=== PATIENT | female | born 1960 | race Caucasian/White ===

== ENCOUNTER → 2016-04-17 | Outpatient (CLI) | payer OTHER ==
[~2016-04-17] MED LIST: ALBUTEROL INH; ALBUTEROL17 G1 IN; ALBUTEROL17 GM INH; ALBUTEROL20 ml INH; CELEXA PO; CIPRO PO; CITALOPRAM HBR10 MG PO; CYCLOBENZAPRINE5 MG PO; CYMBALTA PO; DARVOCET-N 1001 TAB PO; FLAGYL PO; GABAPENTIN300 MG PO; HUMALOG SUBQ; LANTUS100 U/ML SUBQ; LIPITOR20 MG PO; LOPID600 MG PO; LORTAB 7.5-5001 TAB PO; METFORMIN PO; NEURONTIN PO; NEURONTIN300 MG PO; OMEPRAZOLE40 M1 PO; OXYGEN IN; PHENERGAN PO; PRINIVIL20 M1 PO; RANITIDINE HCL150 M1 PO; SYMBICORT; SYMBICORT 160/4.6 GM INH; SYMBICORT INH; ZANTAC150 M1 PO; [UNRECOGNIZED DRUG - OTHER] SUBQ
--- NOTE | ~2016-04-17 | CT55 ---
[facility] A Service [facility] RADIOLOGY TEXT RESULTS PATIENT: NELI BUSTOS LOCATION: [facility] : 56 UNIT #: [id number] AGE: [address]: Luis Bravo MD SEX: F ORDER DR: [id number] [facility] [address] [place], [place] [address] [id number] O MR#: [id number] Acc #: [id number] NAME: NELI BUSTOS. : 1960 SEX: F STUDY DATE/TIME: 04/17/2016 15:20 UNIT: [facility] ROOM: STUDY DESCRIPTION: CT Chest W Con Attending Physician: Luis Bravo M.D. Referring Physician: Luis Bravo M.D. Ordering Physician: Luis Bravo M.D. Primary Care Physician: Merlene Snow MEDICAL IMAGING REPORT This report is preliminary unless electronic signature is present EXAM CT of the chest with contrast INDICATIONS 55-year-old female with right neck mass 6 months progressive dating larger and painful to touch. She has a cough. TECHNIQUE CT of the chest was performed following the administration of IV contrast. Coronal and sagittal reformatted images obtained. Compared with 02/26/[address] exam was performed with one or more of the following radiation dose reduction techniques: automatic exposure control, adjustment of mA and/or kV according to patient size, and iterative reconstruction. FINDINGS There is no lymphadenopathy. There is no pleural effusion. Calcified granuloma in the right lower lobe. There is no airspace consolidation or suspicious pulmonary nodule. Limited imaging of the upper abdomen demonstrates a lap-band. Cholecystectomy. Stable low-density right adrenal nodule represent an adenoma. The bone windows are unremarkable. IMPRESSION There is no evidence of suspicious pulmonary nodule or lymphadenopathy. Dictated by... Sam Kennedy M.D. THIS IS AN ELECTRONICALLY VERIFIED REPORT [facility] A Service of [facility] RADIOLOGY TEXT RESULTS PATIENT: NELI BUSTOS LOCATION: [facility] : 56 UNIT #: [id number] AGE: [address]: Luis Bravo MD SEX: F ORDER DR: Sam Kennedy M.D. at 04/18/2016 4:18 PM LENO/fernanda TD: 04/18/2016 13:36 JOB #: [id number] MEDICAL IMAGING REPORT COPY
--- NOTE | ~2016-04-17 | CT114 ---
[facility] A Service of [facility] & [facility] RADIOLOGY TEXT RESULTS PATIENT: NELI BUSTOS [facility] 56 UNIT #: [id number] AGE: [address]: Luis Bravo MD SEX: F ORDER DR: [id number] [facility] [address] [place], [place] [address] [id number] O MR#: [id number] Acc #: [id number] NAME: NELI BUSTOS. : 1960 SEX: F STUDY DATE/TIME: 04/17/2016 13:48 UNIT: [facility] ROOM: STUDY DESCRIPTION: CT Soft Tissue Neck W Cont Attending Physician: Luis Bravo M.D. Referring Physician: Luis Bravo M.D. Ordering Physician: Luis Bravo M.D. Primary Care Physician: Merlene Snow MEDICAL IMAGING REPORT This report is preliminary unless electronic signature is present EXAM Soft tissue neck CT with contrast, 04/17/2016. COMPARISON 12/30/2015 HISTORY Progressively enlarging right neck mass for several months now with pain and tenderness. PROCEDURE Axial contrast-enhanced soft tissue neck CT with multiplanar reformats. This CT exam was performed with one or more of the following radiation dose reduction techniques: automatic exposure control, adjustment of mA and/or kV according to patient size, and iterative reconstruction. FINDINGS The right cervical adenopathy probably simply a cluster of now matted nodes, previously measured approximately 2.2 x 2.2 cm on axial images and now measures 3 x 4 cm, and previously measured about 3.5 cm craniocaudal and now measures about 5.3 cm craniocaudally. This is centered in the right level 2, posterior to the submandibular salivary gland and medial to the sternocleidomastoid. There are some small satellite nodes as well. This has a low density necrotic appearing center and likely represents metastatic disease, presumably from squamous cell carcinoma, though a likely primary source is not seen. There is slight fullness in the nasopharynx, though not unequivocally malignant in appearance. No contralateral or submental adenopathy is seen. Lymph nodes due extend down to the upper margin of the thyroid cartilage and thus occupy both levels 2 and 3. There is displacement and attenuation of the right internal jugular vein, STS. [facility] A Service of [facility] RADIOLOGY TEXT RESULTS PATIENT: NELI BUSTOS [facility] 56 UNIT #: [id number] AGE: [address]: Luis Bravo MD SEX: F ORDER DR: though it is probably not occluded. The carotid is medially displaced. There is plaque at the bifurcations bilaterally but images here suggest 0% stenosis in both internal carotids by NASCET criteria. The upper mediastinum and visualized lung apices are unremarkable. The bony structures are normal, though the patient is edentulous. The visualized intracranial compartment is unremarkable as well. IMPRESSION 1. Further interval growth in bulky nonnecrotic-appearing right jugular chain adenopathy occupying the right levels 2 and 3, previously measuring about 2.2 x 2.2 x 3.5 cm and now measuring about 3 x 4 x 5.3 cm. There is displacement and attenuation of the right internal jugular vein, though it is probably not occluded. There is displacement of the right common carotid and carotid bifurcation, though no vessel narrowing or convincing evidence of encasement is seen. 2. No potential primary source is identified, though there is slight fullness in the nasopharynx. There is no contralateral or new area of adenopathy. There is spinal degenerative change but no acute bony abnormality. Dictated by... Deven Rodrigues M.D. THIS IS AN ELECTRONICALLY VERIFIED REPORT Deven Rodrigues M.D. at 04/19/2016 11:48 AM MARLENY/cecilia TD: 04/18/2016 12:11 JOB #: [id number] MEDICAL IMAGING REPORT COPY
--- NOTE | ~2016-04-17 | XA230 ---
[facility] A Service of [facility] & [facility] RADIOLOGY TEXT RESULTS PATIENT: NELI BUSTOS LOCATION: [facility] : 56 UNIT #: [id number] AGE: [address]: Luis Bravo MD SEX: F ORDER DR: [id number] [facility] [address] [place], [place] [address] [id number] O MR#: [id number] Acc #: [id number] NAME: NELI BUSTOS : 1960 SEX: F STUDY DATE/TIME: 04/17/2016 17:13 UNIT: [facility] ROOM: STUDY DESCRIPTION: XA FNA Attending Physician: Luis Bravo M.D. Referring Physician: Luis Bravo M.D. Ordering Physician: Luis Bravo M.D. Primary Care Physician: Merlene Snow MEDICAL IMAGING REPORT This report is preliminary unless electronic signature is present EXAM Ultrasound-guided needle aspiration right neck mass CLINICAL HISTORY Right neck mass. PROCEDURE Using real-time ultrasound guidance, a skin site was selected. 25 gauge needle was used for aspiration. Two aspiration passes were performed. Immediate cytopathologic evaluation suggested a technically adequate specimen. IMPRESSION Successful ultrasound-guided needle aspiration of a right neck mass. No immediate complication. Dictated by... Deven Rodrigues M.D. THIS IS AN ELECTRONICALLY VERIFIED REPORT Deven Rodrigues M.D. at 04/24/2016 5:05 PM TEV/rnr TD: 04/22/2016 05:36 JOB #: [id number] MEDICAL IMAGING REPORT COPY
[2016-04-17 15:40] LABS: POC - CREATININE 0.82 mg/dL (0.44-1.03); POC - GFR >60.0 mL/min (>60)
== END | disposition home or self-care (01) ==
LOC: CCAT 13:28
PROVIDERS: Specialist
DX: R22.1 Localized swelling, mass and lump, neck (principal); R59.0 Localized enlarged lymph nodes; F17.200 Nicotine dependence, unspecified, uncomplicated
CPT/HCPCS: 70491; 71260; 76942; 82565; 88173; 88305; 88342; Q9967

== ENCOUNTER → 2016-04-28 | Outpatient (CLI) | payer OTHER ==
--- NOTE | ~2016-04-28 | CT2 ---
[facility] A Service of [facility] RADIOLOGY TEXT RESULTS PATIENT: NELI BUSTOS LOCATION: [facility] : 56 UNIT #: [id number] AGE: [address]: Luis Bravo MD SEX: F ORDER DR: [id number] [facility] [address] [place], [place] [address] [id number] O MR#: [id number] Acc #: [id number] NAME: NELI BUSTOS. : 1960 SEX: F STUDY DATE/TIME: 04/28/2016 15:26 UNIT: [facility] ROOM: STUDY DESCRIPTION: CT Abd and Pelv W Cont Attending Physician: Luis Bravo M.D. Referring Physician: Luis Bravo M.D. Ordering Physician: Luis Bravo M.D. Primary Care Physician: Merlene Snow MEDICAL IMAGING REPORT This report is preliminary unless electronic signature is present EXAM CT abdomen and pelvis with contrast INDICATION Metastatic adenocarcinoma of unknown primary. Restaging. Observation for metastatic disease and response to therapy. PROCEDURE Contrast-enhanced CT of the abdomen and pelvis. TECHNIQUE This CT exam was performed with one or more of the following radiation dose reduction techniques: automatic exposure control, adjustment of mA and/or kV according to patient size, and iterative reconstruction. COMPARISON 12/30/2015 FINDINGS ABDOMEN WITH CONTRAST: Included lung bases are clear. No liver or splenic mass. Kidneys unremarkable. Unremarkable pancreas. Previous cholecystectomy. 2.5 cm right adrenal lesion is indeterminate. It is unchanged dating back to an unenhanced chest CT of 2009 when it was characterized as a benign adenoma. Left adrenal gland unremarkable. Lap-band in place. Moderate colonic stool burden. Supraumbilical midline fat-containing hernia measures 3.6 cm. No abdominal adenopathy. PELVIS WITH CONTRAST: Previous hysterectomy. No pelvic mass. Bladder is decompressed and not well evaluated. There is bladder wall thickening up to 11.0 mm. No pelvic adenopathy. No aggressive appearing bone lesion. IMPRESSION [facility] A Service of [facility] RADIOLOGY TEXT RESULTS PATIENT: BUSTOS,NELI A LOCATION: [facility] : 56 UNIT #: [id number] AGE: [address]: Luis Bravo MD SEX: F ORDER DR: 1. No convincing evidence for metastatic disease in the abdomen or pelvis. 2. Bladder wall thickening is nonspecific and may be related under-distension. Correlate with any suspicion for bladder pathology. 3. Right adrenal adenoma. 4. Lap-band in place. 5. Midline fat-containing supraumbilical hernia. Dictated by... Yury Olsen M.D. THIS IS AN ELECTRONICALLY VERIFIED REPORT Yury Olsen M.D. at 05/02/2016 10:02 AM Krishna TD: 05/01/2016 12:54 JOB #: [id number] MEDICAL IMAGING REPORT Page 1 of 1 COPY
== END | disposition home or self-care (01) ==
LOC: CCAT 14:17
DX: C77.9 Secondary and unspecified malignant neoplasm of lymph node, unspecified (principal); D35.01 Benign neoplasm of right adrenal gland; K42.9 Umbilical hernia without obstruction or gangrene
CPT/HCPCS: 74177; Q9967

== ENCOUNTER 2016-05-11 10:59 | Observation (INO) | payer OTHER ==
--- NOTE | ~2016-05-11 | MR148 ---
[facility] A Service of [facility] & [facility] RADIOLOGY TEXT RESULTS PATIENT: NELI BUSTOS LOCATION: [place] [address]- : 56 UNIT #: [id number] AGE: [address]: Luis Bravo MD SEX: F ORDER DR: [id number] [facility] [address] [place], [place] [address] [id number] I MR#: [id number] Acc #: [id number] NAME: NELI BUSTOS. : 1960 SEX: F STUDY DATE/TIME: 05/11/2016 20:12 UNIT: [facility] ROOM: 2 STUDY DESCRIPTION: MR Orbit Face and or Neck WWo Attending Physician: Luis Bravo M.D. Ordering Physician: Anabell Starkey M.D. Primary Care Physician: Merlene Dykes Aprn [facility] REPORT This report is preliminary unless electronic signature is present. EXAM Soft tissue neck MRI with and without contrast HISTORY Head and neck pain, right neck mass. PROCEDURE Soft tissue neck MRI with and without contrast. COMPARISON Soft tissue neck CT dated 04/17/2016 and 12/30/2015. FINDINGS Redemonstrated irregular matted partially necrotic appearing right level 2/3 jugular chain jose mass. The current exam measures about 3.4 x 5 x 5.4 cm compared to about 3.1 x 4 x 5.3 cm in April 2016. No new or additional masses are seen. There is a small left submandibular lymph node not substantially or convincingly changed since April 17, 2016. It measures probably about 1.5 x 1.3 x 0.7 cm. Bone marrow signals within normal limits. IMPRESSION 1. Redemonstrated right, large jugular chain presumed partial necrotic jose mass. It measured about 2.5 x 2.5 x 3.4 cm in December 2015, about 3.1 x 4.0 x 5.3 cm in April 2016 and currently measures about 3.4 x 5.0 x 5.4 cm. There is a mildly prominent left level II lymph node about 15 x 13 x 7 mm, not convincingly substantially changed since the study of April 17, 2016. 2. No new masses are seen. Lesion has already been biopsied. No obvious primary site is identified and there is no evidence of spinal or spinal canal involvement. [facility] A Service of [facility] RADIOLOGY TEXT RESULTS PATIENT: NELI BUSTOS LOCATION: [facility] 452-01 : 56 UNIT #: [id number] AGE: [address]: Luis Bravo MD SEX: F ORDER DR: Dictated by... Deven Rodrigues M.D. THIS IS AN ELECTRONICALLY VERIFIED REPORT Deven Rodrigues M.D. at 05/12/2016 4:57 PM MARLENY/jeanie TD: 05/12/2016 10:01 JOB #: [id number] MRI CENTER REPORT Page 1 of 1 COPY
--- NOTE | ~2016-05-11 | OR ---
Unit #: [id number] #: [id number] Patient: NELI BUSTOS [id number] [facility] [address] [place], [place] [address] [id number] I MR#: [id number] NAME: NELI BUSTOS. ROOM: 452 Date of Procedure: 05/11/2016 Admission Date: 05/11/2016 Surgeon: Luis Bravo M.D. : 1960 Attending Physician: Luis Bravo M.D. 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 POSTOPERATIVE DIAGNOSES 1. 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 2. Vxaf-wf-tvdprgbq gastritis, and 4 cm hiatal hernia. PROCEDURES PERFORMED 1. Esophagogastroduodenoscopy to the fourth portion of the duodenum with antral biopsy x1. 2. Colonoscopy to cecum. ANESTHESIA Monitored anesthesia. INDICATIONS FOR PROCEDURE Ms. Bustos is a 56-year-old female, who was sent to the office with a several month history of mass in the right neck. It appeared to be adenopathy. The patient stated it had been growing over several months. It was now causing more discomfort. She had a history of smoking. She denied a productive cough or other symptoms. No other palpable adenopathy was noted and her oral examination was normal. Outpatient CT scan of the neck showed bulky adenopathy consistent with malignancy with displacement of the carotid artery and internal jugular vein, but the vein appeared to be patent. No other abnormalities were noted, although it was noted there may be some thickness of the nasopharynx. She subsequently underwent CT scan of the chest, abdomen, and pelvis. No primary was identified. There was some question of thickening of the bladder wall, but it may have been more related to distention and actual thickening. A fine-needle aspirate cytology of the neck mass revealed malignancy of glandular or neuroendocrine origin. We plan on doing an EGD and colonoscopy today to evaluate the GI tract despite the fact that her CT scan of abdomen and pelvis was nondefinitive. DESCRIPTION OF PROCEDURE The patient was admitted to [facility], positively identified, and transported to the endoscopy suite where after appropriate monitoring and positioning, a bite block was placed and she was sedated by the nurse back padder. The endoscope was passed through the oral cavity into the esophagus. Under direct vision, we passed through the esophagus. The GE junction was well demarcated at 35 cm from the incisors. There was no esophagitis. No ulceration. No mass and no Plaza mucosa. We passed into the stomach and insufflated. She had a measurable 4 cm hiatal Unit #: [id number] #: [id number] Patient: NELI BUSTOS hernia. The antrum showed some bevs-ls-gtajjvwi gastritis and a biopsy for CLOtest was taken, but in retroflexing the scope above the incisura, no significant findings in the upper fundus or cardia were noted. As I passed through the pylorus, we passed down to the fourth portion of duodenum. Duodenum and duodenal bulb were normal. In retrograde visualization, no other abnormalities were noted. The larynx was well visualized. No abnormalities were noted. The rest of the nasopharynx and oral cavities were visualized, but again no abnormalities were noted. After completion of the upper scope, the patient was repositioned. On rectal examination, there were no palpable masses. Colonoscope was passed through the anal verge and throughout the extent of the colon to the cecum where the appendiceal orifice and ileocecal valve were photodocumented. On careful antegrade and retrograde visualization, no abnormalities were noted throughout the colon. The patient tolerated the procedure well and was transported to the recovery in stable condition. The patient is complaining of increasing pain and now started to have some dysphagia, but no change in voice to facilitate her evaluation and because of her pain and the displacement of her vessels of the neck, I am going to get Medical Oncology to see the patient. I will ask ENT to see the patient and also Urology after urinalysis with cytology was performed. Her breast examination was negative and there was no palpable adenopathy in the axilla and supraclavicular region, but with bilateral mammogram is due as her last was in 2012. Dictated by... Kari Ochoa/carlos TD: 05/12/2016 03:16 JOB #: [id number] OPERATIVE REPORT Page 1 of 1 X Luis Bravo MD X PROCEDURE OPERATIVE NOTE
--- NOTE | ~2016-05-11 | CO ---
Unit #: [id number] #: [id number] Patient: NELI BUSTOS [id number] [address] [address] [id number] I MR#: [id number] NAME: NELI BUSTOS. ROOM: 452 Age: 56 Sex: F Admission Date: 05/11/2016 : 1960 Attending Physician: Luis Bravo M.D. Primary Care Physician: Merlene Snow Consultation Date: 05/11/2016 CONSULTATION REPORT REASON FOR CONSULTATION Bladder wall thickening. HISTORY This 56-year-old woman was admitted with an obvious mass of the right neck. Fine needle aspiration yields diagnosis of adenocarcinoma. Primary has not been determined, and bladder wall thickening was noted on CT scan. She relates the mass was noted 6 months ago, and after seeking initial care, including a negative MRI, there were obstacles to further care with a 3- to 4-month delay resulting in additional growth of the lesion and today's admission. She has a history of colon polyps, and endoscopy today was clear. CT scan of the abdomen and pelvis has noted no new findings other than bladder wall thickening, which is unmistakable but diffuse and nonspecific. Urologically she has no voiding complaints. She denies gross hematuria or urinary tract infections. She has no history of stone disease. She did have stress incontinence and, at the time of hysterectomy, underwent simultaneous bladder suspension 28 years ago with correction of this. She is a cigarette smoker, however. PAST MEDICAL HISTORY Hypertension, GERD, diabetes, obesity, back pain, history of polyps, elevated cholesterol, COPD, neck mass. SURGERIES Hysterectomy. MEDICATIONS ON ADMISSION Prinivil, cyclobenzaprine, Glucophage, Lipitor, omeprazole, Symbicort, albuterol. ALLERGIES Aspirin. FAMILY HISTORY Noncontributory. SOCIAL HISTORY Smoker. REVIEW OF SYSTEMS In addition to the neck mass, she has negative review of systems. Unit #: [id number] #: [id number] Patient: NELI BUSTOS PHYSICAL EXAMINATION GENERAL: She is a pleasant, alert, obese female sitting up in bed with an obvious mass in the right neck. ABDOMEN: Abdomen is large, soft, low midline incisional scar. No masses, tenderness, hernias or organomegaly appreciated. PELVIC EXAMINATION: Normal (1) urethra and meatus. No pelvic scarring. Cervix and uterus surgically absent. Good support. No adnexal masses or tenderness. DIAGNOSTIC STUDIES LABORATORY: Normal urinalysis. BUN 10, creatinine 0.8. liver function tests are normal. Hemoglobin is 14.4. X-RAYS: CT as noted. IMPRESSION Nonspecific diffuse bladder wall thickening, unlikely to represent primary for the patient's adenocarcinoma, but in the absence of a diagnosis, cystoscopy may be helpful. PLAN Will check results of MRI of head and neck mass this evening and await ENT evaluation. If no immediate diagnosis, will proceed with cystoscopy under local, hopefully, tomorrow. Thank you, Xavi, for the consultation. Dictated by... Kari Dalton/korina TD: 05/12/2016 09:37 JOB #: [id number] CC: Michel Starkey M.D. CONSULTATION REPORT Page 1 of 1 X Luis Cheung MD X CONSULTATION REPORT
--- NOTE | ~2016-05-11 | MR17 ---
[facility] A Service [facility] RADIOLOGY TEXT RESULTS PATIENT: NELI BUSTOS LOCATION: [facility] : 56 UNIT #: [id number] AGE: [address]: Luis Bravo MD SEX: F ORDER DR: [id number] [facility] [address] [place], [place] [address] [id number] I MR#: [id number] Acc #: [id number] NAME: NELI BUSTOS. : 1960 SEX: F STUDY DATE/TIME: 05/11/2016 19:43 UNIT: [facility] ROOM: 2 STUDY DESCRIPTION: MR Brain WWo Contrast Attending Physician: Luis Bravo M.D. Ordering Physician: Anabell Starkey M.D. Primary Care Physician: [facility] REPORT This report is preliminary unless electronic signature is present. EXAM Brain MR with and without contrast, 05/11/2016. PROCEDURE Routine brain MR with and without contrast. CLINICAL HISTORY Right neck mass first noted in October 2015, complaining of constant headache. FINDINGS There is no MR evidence of acute ischemia or other restricted diffusion. Bone marrow signal is normal. Right neck mass is seen at the lower margin of the exam, better evaluated on accompanying soft tissue neck MRI. There is moderate chronic small vessel type white matter change, but no acute intracranial abnormality is seen. Normal flow voids are seen in the cerebral vessels. Postcontrast images show no evidence of intracranial mass or abnormal enhancement. IMPRESSION 1. Known right neck mass is partially imaged here. Please see soft tissue neck MR report. 2. The brain itself shows moderate chronic small vessel type white matter changes, nonspecific and greater than expected for age, but there is no acute ischemia, mass, or abnormal enhancement or other acute abnormality. Dictated by... Deven Rodrigues M.D. [facility] A Service [facility] RADIOLOGY TEXT RESULTS PATIENT: NELI BUSTOS LOCATION: [facility] : 56 UNIT #: [id number] AGE: [address]: Luis Bravo MD SEX: F ORDER DR: THIS IS AN ELECTRONICALLY VERIFIED REPORT Deven Rodrigues M.D. at 05/12/2016 4:57 PM TEV/alejow TD: 05/12/2016 09:34 JOB #: [id number] MRI CENTER REPORT Page 1 of 1 COPY
--- NOTE | ~2016-05-11 | CO ---
Unit #: [id number] #: [id number] Patient: NELI BUSTOS [id number] [address] [place], [place] [address] [id number] I MR#: [id number] NAME: NELI BUSTOS. ROOM: 452 Age: 56 Sex: F Admission Date: 05/11/2016 : 1960 Attending Physician: Luis Bravo M.D. Consultation Date: 05/11/2016 CONSULTATION REPORT REASON FOR EVALUATION Right-sided neck mass positive for malignancy, please evaluate. HISTORY OF PRESENT ILLNESS Patient is a 56-year-old lady who has been a smoker since age 12, who started feeling a mass on the right side of the neck. She was seen by [facility], and after evaluation, she was referred. Dr. Bravo was very kind in evaluating this lady thoroughly including biopsy of the right-sided neck mass which showed possible neuroendocrine tumor and possible glandular features denoting possible adenocarcinoma metastatic. We are requested to evaluate. PAST MEDICAL HISTORY Negative for other cancers. FAMILY HISTORY Negative for cluster of cancers. CHRONIC MEDICATIONS 1. Lipitor. 2. Omeprazole. 3. Glucophage. 4. Cyclobenzaprine. 5. Prinivil. 6. Symbicort. 7. Albuterol. ALLERGIES No known allergies. REVIEW OF SYSTEMS Some anxiety and some pain at the right side of the neck. Appetite is fairly good. Weight is stable. Performance is 100%. Otherwise, six or eight systems were within normal limits. PHYSICAL EXAMINATION GENERAL: She is very awake, alert, and very pleasant. NECK: Right-sided moderately tender, firm, attached mass just below the angle of the jaw in the sternocleidomastoid area and possible smaller mass just below it. No other masses. LUNGS: Clear. CARDIOVASCULAR: Distant S1 and S2. ABDOMEN: No organomegaly. CENTRAL NERVOUS SYSTEM: Grossly intact. Unit #: [id number] #: [id number] Patient: NELI BUSTOS PELVIC/BREASTS: Not performed. DIAGNOSTIC STUDIES LABORATORY: CBC with hemoglobin 14.4, hematocrit 43.6, white count 6700, and platelets 226,000. Sodium 138, potassium 4, chloride 103, CO2 of 26, glucose 117, BUN 10, and creatinine 0.8. Pathology report had an addendum which basically reads that it is a carcinoma and it is showing glandular and neuroendocrine features and their suggestion that it is not lung, breast, or colon, but could be urothelial or mullerian in origin. IMPRESSION AND PLAN This 56-year-old lady with 40 pack smoking history has a right-sided neck mass which was read as possible neuroendocrine versus mullerian origin with glandular formation. 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 This was conveyed to the patient and options discussed. The decision was made that she will definitely need ENT evaluation for panendoscopy, Urology evaluation for possible cystoscopy as there is some thickening of the bladder, and from our part, we are going to do an MRI of the head and neck area with and without contrast, followed by a PET scan as an outpatient, and depending on the findings, proceed further. Dictated by... Kari Pabon/selwyn TD: 05/11/2016 18:31 JOB #: [id number] CONSULTATION REPORT Page 1 of 1 X Michel Starkey MD X CONSULTATION REPORT
--- NOTE | ~2016-05-11 | CO ---
Unit #: [id number] #: [id number] Patient: NELI BUSTOS [id number] [address] [place], [place] [address] [id number] I MR#: [id number] NAME: NLEI BUSTOS. ROOM: 452 Age: 56 Sex: F Admission Date: 05/11/2016 : 1960 Attending Physician: Luis Bravo M.D. Primary Care Physician: Merlene Snow Consultation Date: 05/12/2016 CONSULTATION REPORT REASON FOR CONSULT Right neck mass with preliminary diagnosis of neuroendocrine carcinoma. REQUESTING PHYSICIAN Dr. Bravo HISTORY This is a 56-year-old female who has had at least a six month history of an enlarging and somewhat painful right upper neck mass. This has been documented previously by a CT scan this past December that was reviewed as well as a more recent CT scan earlier this month. An FNA was performed earlier this month and showed evidence of a possible neuroendocrine carcinoma of glandular origin. She recently underwent EGD with Dr. Bravo and was admitted for further workup. Urology evaluation is pending and oncology has seen her with pending MRI and PET scan studies. She reports some pain while swallowing but otherwise no significant dysphagia. She has a significant history of smoking. All past medical history and social history was otherwise reviewed in the chart. REVIEW OF SYSTEMS 10+ is noncontributory other than described above. PHYSICAL EXAMINATION VITAL SIGNS: She is currently afebrile. Vital signs are stable. She is alert and oriented x3. HEENT: Pupils reactive to light and accommodation. Extraocular movements are intact. Left and right ears are clear. Nasal cavities are clear of any suspicious lesions or masses anteriorly. Oropharynx is edentulous. She has no suspicious lesions of the oral cavity or oropharynx. Her tonsils are 2+ without suspicious ulceration or masses palpable. Floor of mouth is clear. She has a 4 to 5 cm right upper neck mass that is thick and somewhat tender without obvious lymphadenopathy otherwise. Flexible endoscopy was performed at bedside and this showed no significant masses of the nasal or sinus cavity. She has mildly enlarged adenoids but these are symmetric with no ulceration or suspicious mucosal findings. Posteriorly, her base of tongue, her pyriform, hypopharynx and larynx are all clear of any suspicious lesions or masses. I reviewed images of her CT scan but it looks like her MRI and PET scan are pending at this time. ASSESSMENT AND PLAN Unit #: [id number] #: [id number] Patient: NELI BUSTOS This is a 56-year-old with a preliminary diagnosis of neuroendocrine carcinoma with pending further imaging workup. Will defer to oncology as far as further plan in regards to radiation chemotherapy versus surgical options. I would likely defer to [facility] physicians, Dr. Santino Ceja or Dr. Frank Matias for further surgical management if necessary given the complexity of her diagnosis. This patient was discussed with Dr. Bravo and happy to help further if necessary. Dictated by... Kari Grimaldo/noy TD: 05/12/2016 09:30 JOB #: [id number] CONSULTATION REPORT Page 1 of 1 X Chandler Zhong MD CONSULTATION REPORT
--- NOTE | ~2016-05-11 | DS ---
Unit #: [id number] #: [id number] Patient: NELI BUSTOS [id number] [address] [address] [id number] I MR#: [id number] NAME: NELI BUSTOS ROOM: 45 Age: 56 Sex: F Admission Date: 05/11/2016 : 1960 Discharge Date: Attending Physician: Luis Bravo M.D. Primary Care Physician: Merlene Snow DISCHARGE SUMMARY DIAGNOSIS Neuroendocrine tumor, right neck. PROCEDURE PERFORMED 1. Fine needle biopsy of neck mass. 2. Cystoscopy. 3. [employer]ER scope. 4. EGD colonoscopy. HOSPITAL COURSE The patient is a 56-year-old lady, who presented with a neck mass. She underwent the aforementioned procedures. She was found to have a neuroendocrine tumor of unknown etiology. DISPOSITION The patient will be discharged home. DISCHARGE INSTRUCTIONS She is to undergo PET scan on Sunday. DISCHARGE MEDICATIONS Regular home medications. Dictated by... Kari Roe/carlos TD: 05/13/2016 07:12 JOB #: [id number] DISCHARGE SUMMARY Page 1 of 1 X Shun Shea MD X DISCHARGE SUMMARY
--- NOTE | ~2016-05-11 | OR ---
Unit #: [id number] #: [id number] Patient: NELI BUSTOS [id number] [address] [address] [id number] I MR#: [id number] NAME: NELI BUSTOS. ROOM: 452 Date of Procedure: 05/12/2016 Admission Date: 05/11/2016 Surgeon: Luis Cheung M.D. : 1960 Attending Physician: Luis Bravo M.D. Primary Care Physician: Merlene Snow OPERATIVE REPORT PREOPERATIVE DIAGNOSES Carcinoma of unknown primary, thick bladder wall. POSTOPERATIVE DIAGNOSES Diffuse 1+ bladder trabeculation. No bladder lesions. PROCEDURE PERFORMED Flexible cystourethroscopy. ANESTHESIA Local. INDICATIONS FOR PROCEDURE This 56-year-old woman with a large neck mass proven adenocarcinoma is under evaluation for primary lesion and abdominal skin notable only for bladder wall thickening. DESCRIPTION OF PROCEDURE The patient was positioned frog-legged in her bed and the genitalia were prepped and draped. Xylocaine was placed in urethra. A flexible cystoscope was introduced noting good emptying. The bladder was filled and examined antegrade noting 1+ trabeculation diffusely, but no stones, tumors, or suspicious areas. The ureteral orifices were normal and symmetric. Retroflexion confirmed findings with no additional findings at the bladder neck. The cystoscope was removed confirming normal urethra. She tolerated the procedure well. IMPRESSION 1. Near normal cystoscopic examination. 2. No evidence of genitourinary primary. 3. No voiding dysfunction, urologically stable. PLAN No further evaluation indicated at this time. Dictated by... Kari Dalton/carlos TD: 05/13/2016 06:11 Unit #: [id number] #: [id number] Patient: NELI BUSTOS JOB #: [id number] Michel Starkey M.D. OPERATIVE REPORT Page 1 of 1 X Luis Cheung MD PROCEDURE OPERATIVE NOTE
[2016-05-11 14:54] LABS: BASOPHIL# 0.1 X10e3 (0-0.3); EOSINOPHIL# 0.1 X10e3 (0-0.7); EOSINOPHIL% 1.9 % (0.0-7.0); HEMATOCRIT 43.6 % (35.0-45.0); HEMOGLOBIN 14.4 gm/dL (12.0-16.0); LYMPHOCYTE# 2.2 X10e3 (1.0-3.5); LYMPHOCYTE% 32.2 % (17.0-45.0); MEAN CELL VOLUME 84.2 FL (83-96); MEAN CORPUSCULAR HEMOGLOBIN 27.7 PG (28-34); MEAN CORPUSCULAR HGB CONC 32.9 g/dL (30-36); MEAN PLATELET VOLUME 7.8 FL (6.5-11.5); MONOCYTE# 0.4 X10e3 (0-1.0); MONOCYTE% 6.5 % (3.0-12.0); NEUTROPHIL# 3.9 X10e3 (1.5-7.1); NEUTROPHIL% 58.4 % (40-75); PLATELET COUNT 226 X10e3 (140-420); RED BLOOD COUNT 5.18 X10e (3.90-5.30); RED CELL DISTRIBUTION WIDTH 13.2 % (11.0-15.5); WHITE BLOOD COUNT 6.7 X10e3 (4.0-10.5)
[2016-05-11 14:58] LABS: DIFF IND NO
[2016-05-11 15:15] LABS: ALBUMIN SERUM 4.4 g/dL (3.5-5.0); BILIRUBIN,TOTAL 0.5 mg/dL (0.2-2.0); BUN/CREATININE RATIO 12.5; CALCIUM SERUM 9.4 mg/dL (8.4-10.2); CREATININE SERUM 0.8 mg/dL (0.6-1.4); GLOM FILT RATE Estimated 81.3 mL/min (>60)
[2016-05-11 17:27] LABS: URINE SOURCE CLEAN CATCH
[2016-05-11 17:49] LABS: URINE APPEARANCE CLEAR; URINE BILIRUBIN NEG (NEG); URINE BLOOD NEG (NEG); URINE COLOR YELLOW; URINE GLUCOSE NEG (NEG); URINE KETONE NEG (NEG); URINE LEUKOCYTE ESTERASE NEG (NEG); URINE NITRATE NEG (NEG); URINE PROTEIN NEG (NEG); URINE UROBILINOGEN 0.2 MG/DL (NEG)
== END 2016-05-13 10:52 | disposition home or self-care (01) ==
LOC: COPS 10:59 → CPACUOF 13:43 → C4B 15:54
PROVIDERS: Specialist
DX: C77.0 Secondary and unspecified malignant neoplasm of lymph nodes of head, face and neck (principal); C80.1 Malignant (primary) neoplasm, unspecified; N32.89 Other specified disorders of bladder; K29.70 Gastritis, unspecified, without bleeding; K44.9 Diaphragmatic hernia without obstruction or gangrene; J44.9 Chronic obstructive pulmonary disease, unspecified; F17.200 Nicotine dependence, unspecified, uncomplicated; K21.9 Gastro-esophageal reflux disease without esophagitis; E11.9 Type 2 diabetes mellitus without complications; Z79.84 Long term (current) use of oral hypoglycemic drugs; Z99.81 Dependence on supplemental oxygen; Z88.6 Allergy status to analgesic agent; Z90.710 Acquired absence of both cervix and uterus
CPT/HCPCS: 70543; 70553; 80053; 81003; 82947; 85025; 87077; 88108; 88305; 94640; 94760; 96374; 96375; 96376; A9577; G0378; J2270; J2405